=== PATIENT | female | born 1990 | race Caucasian/White ===

== ENCOUNTER 2022-10-19 00:11 | Emergency (ER) | payer SELFPAY ==
--- NOTE | ~2022-10-19 | US_ITS ---
EXAMINATION: US venous doppler [facility] DATE: 10/19/2022 07:55 INDICATION: Left lower limb pain. TECHNIQUE: Grayscale ultrasound images without and with compression and Doppler ultrasound images of the left lower extremity veins were obtained. COMPARISON: None. FINDINGS: The visualized portions of left common femoral vein, profunda (deep) femoral vein, femoral vein, popl iteal vein, peroneal veins, posterior tibial veins, and greater saphenous vein outflow are patent. IMPRESSION: 1. No deep venous thrombosis. Reviewed, dictated and finalized at location A. OL BUS INSPECTOR
[2022-10-19 00:13] VITALS: BP 129/83; PULSE 66; RESP 18; TEMP 37.1; O2SAT 100
--- NOTE | 2022-10-19 00:17 | ECG_ITS ---
Measurements Intervals [place] Rate: 57 P: 35 WV: 169 QRS: 40 QRSD: 96 T: 19 QT: 438 QTc: 430 Interpretive Statements SINUS BRADYCARDIA BORDERLINE ST ABNORMALITY- INF/LAT LEADS BORDERLINE ECG NO PREVIOUS ECG AVAILABLE FOR COMPARISON Electronically Signed On 10-19-2022 6:53:11 TOOL KEEPER by Kush Treviño D.O.
[2022-10-19 03:38] VITALS: BP 106/63; PULSE 55; RESP 16; O2SAT 100
[2022-10-19 07:21] VITALS: BP 103/75; PULSE 55; RESP 13; O2SAT 100
--- NOTE | 2022-10-19 08:27 | ED.GENADULT ---
HPI - General Adult General Chief complaint: Unspecified Stated complaint: CP, back pain, bilateral leg pain Time Seen by Provider: 10/19/22 07:07 History of Present Illness HPI narrative: Pt presents with a area that intermittently pops up behind her left knee when she stands up. Pt says it is not constant and is mildly tender when she pushes on it. Pt says she had a bunch of procedures for vericose veins in [place]. Pt also has plantar's wart on heal. Pt want sot make sure it is not a clot. Related Data Allergies Allergy/AdvReac Type Severity Reaction Status Date / Time No Known Allergies Allergy Verified 06/21/22 10:17 Review of Systems Review of Systems: All systems reviewed & are unremarkable except as noted in HPI and below PMFSH Past Medical History Medical History Encounter for insertion of mirena IUD Smoker Surgical History Surgical History History of surgery on lower extremity vein surgery Social History Social History (Updated 06/21/22 @ 10:20 by Yuko Doherty MA) Smoking packs per day: 1 Smoking cigarettes per day: 20.0 Years smoked: 14 Smoking pack-years: 14.00 Smoking status: Heavy tobacco smoker Tobacco type: cigarettes Second hand tobacco smoke exposure: Yes Alcohol intake: never Substance use: never Substance use type: does not use Living arrangements: with family Occupation/Education: occupation Gender identity (if verbalized by the patient): Female Exam Const: General: cooperative, no acute distress and alert Limitations: no limitations HENMT: Head: normal to inspection Resp: Effort & Inspection: normal respiratory effort Auscultation: clear to auscultation bilaterally Cardio: Rate: regular rate Rhythm: regular rhythm Skin: General skin exam: normal color and no rashes or lesions noted Other: plantar's wart left heel. Neuro: General: patient oriented x3 and no meningeal signs Extrem: General: normal to inspection, full ROM and no joint enlargement Other: no significant abnormality noted on exam Psych: Appearance: grossly normal Mental Status: mental status grossly normal Speech and movement: Normal speech and movement present Affect: normal affect Attitude: cooperative Thought process: Normal thought process present Course Vital Signs Vital signs: Vital Signs Temperature 98.8 F 10/19/22 00:13 Pulse Rate 66 10/19/22 00:13 Respiratory Rate 18 03/07/23 00:13 Blood Pressure 129/83 10/19/22 00:13 Pulse Oximetry 100 10/19/22 00:13 Oxygen Delivery Room Air 10/19/22 00:13 Temperature 98.8 F 10/19/22 00:13 Pulse Rate 54 L 10/19/22 08:44 Respiratory Rate 12 10/19/22 08:44 Blood Pressure 128/54 L 10/19/22 08:44 Pulse Oximetry 98 10/19/22 08:44 Oxygen Delivery Room Air 10/19/22 04:10 Medical Decision Making MDM Narrative Medical decision making narrative: pt has no visible signs of cyst or clot and no significant edema but is concerned for DVT so will order venous doppler. doppler negative. Pt also has plantar wart which we will treat. given pt a pcp for follow up since she is without one. Vital Signs Vital Signs: Vital Signs Temperature 98.8 F 10/19/22 00:13 Pulse Rate 66 10/19/22 00:13 Respiratory Rate 18 10/19/22 00:13 Blood Pressure 129/83 10/19/22 00:13 Pulse Oximetry 100 10/19/22 00:13 Oxygen Delivery Room Air 10/19/22 00:13 Temperature 98.8 F 10/19/22 00:13 Pulse Rate 54 L 10/19/22 08:44 Respiratory Rate 12 10/19/22 08:44 Blood Pressure 128/54 L 10/19/22 08:44 Pulse Oximetry 98 10/19/22 08:44 Oxygen Delivery Room Air 10/19/22 04:10 Discharge Plan Discharge Clinical Impression: Varicose vein of leg, Plantar wart Patient Disposition: Home, Self-Care Condition: Stable Instructions: Antibiotic Form, Plantar Wart (ED) Prescriptions: New salicylic acid 27.5 % film fo
[2022-10-19 08:44] VITALS: BP 128/54; PULSE 54; RESP 12; O2SAT 98
== END 2022-10-19 08:52 | disposition home or self-care (01) ==
PROVIDERS: Emergency Provider Emergency Medicine
DX: I83.92 Asymptomatic varicose veins of left lower extremity (principal); B07.0 Plantar wart; F17.200 Nicotine dependence, unspecified, uncomplicated; F17.210 Nicotine dependence, cigarettes, uncomplicated
CPT/HCPCS: 93005; 93971; 99284

== ENCOUNTER 2024-11-14 15:45 | Emergency (ER) | payer BC, SELFPAY ==
[2024-11-14 15:58] VITALS: BP 111/69; PULSE 87; RESP 18; TEMP 38.5; O2SAT 100
[2024-11-14 16:14] LABS: EDSTREPNEGPOS1 Positive (Negative)
[2024-11-14 16:16] VITALS: TEMP 38.5
[2024-11-14] MEDS: IBUPROFEN 600 MG TABLET PO (16:16)
--- NOTE | 2024-11-14 16:19 | ED.URI ---
HPI - URI/Sore Throat General Chief Complaint: Upper Respiratory Infection Stated Complaint: Sore Throat Time Seen by Provider: 11/14/24 16:09 Source: patient and RN notes reviewed Mode of arrival: ambulatory Limitations: no limitations History of Present Illness HPI Narrative: Patient presents today with a 3 day history of sore throat, bilateral ear pain, subjective fever, body aches, headache. She has been taking Tylenol and ibuprofen with some relief. She currently rates her pain 10/10. Related Data Allergies Allergy/AdvReac Type Severity Reaction Status Date / Time No Known Allergies Allergy Verified 11/14/24 16:00 Review of Systems Review of Systems: CONSTITUTIONAL: + body aches, subjective fever EYES: Denies visual changes, redness, or discharge. ENT: De+ sore throat, bilateral ear pain CARDIOVASCULAR: Denies chest pain, palpitations, or edema. RESPIRATORY: Denies cough or dyspnea. GASTROINTESTINAL: Denies abdominal pain, nausea, vomiting, or diarrhea. GENITOURINARY: Denies dysuria or hematuria. SKIN: Denies rash, itching, or wounds. MUSCULOSKELETAL: Denies back pain, joint pain, or myalgia. NEUROLOGIC: Denies numbness, tingling, or weakness.+ headache PSYCH: Denies depression or anxiety. [facility] Past Medical History Medical History Smoker Surgical History Surgical History (Reviewed 11/14/24 @ 16:22 by Debora Colmenares, [facility], ) H/O gynecological procedure paragard insert 2020 History of surgery on lower extremity vein surgery Social History Social History (Reviewed 11/14/24 @ 16:22 by Debora Colmenares, [facility], ) Smoking packs per day: 1 Smoking cigarettes per day: 20.0 Years smoked: 14 Smoking pack-years: 14.00 Smoking status: Heavy tobacco smoker Tobacco type: cigarettes Second hand tobacco smoke exposure: Yes Alcohol intake: never Substance use: never Substance use type: does not use Do You Feel Safe in your Home?: Yes Lack of Transportation: No Lack of Food: Never True Current Housing: I Have Housing Concerned About Future Housing: No Difficulty Paying Gas/Electric Bills: No Difficulty Paying for Meds: No Currently Unemployed: No Education: Decline to Answer Difficulty w/ Childcare or Family Care: No Living arrangements: with family Occupation/Education: occupation Gender identity (if verbalized by the patient): Female Sexual Orientation (if Verbalized by the Patient): Straight or Heterosexual Comments At time of signature, I have reviewed and agree with nursing past medical, surgical, social and family history unless otherwise noted. Please see nursing chart for further information. There is no relevant family history pertinent to the presenting complaint Exam Narrative: GENERAL: Well-appearing, well-nourished, and in no acute distress. HEAD: Normocephalic, atraumatic. EYES: EOMI. No redness or drainage. Conjunctivae normal. ENT: Mucous membranes pink and moist. Nares clear. No rhinorrhea. TMs normal bilaterally. Throat mildly erythematous and edematous. Exudate on both tonsils which are 2+. Uvula midline. NECK: Normal AROM. Supple. Bilateral anterior cervical chain lymphadenopathy. CHEST: No respiratory distress. Clear to auscultation. HEART: Regular rate and rhythm. No murmur appreciated. EXTREMITIES: Normal range of motion. No edema. SKIN: Warm, dry, no rash. Capillary refill normal. Normal skin turgor. NEURO: No focal deficits. Alert and oriented x3. Gait steady. PSYCH: Normal affect. No signs of depression or anxiety. Course Course Level of Care: Express Care Visit Vital Signs Vital signs: Vital Signs Temperature 101.3 F H 11/14/24 15:58 Pulse Rate 87 11/14/24 15:58 Respiratory Rate 18 11/14/24 15:58 Blood Pressure 111/69 11/14/24 15:58 Pulse Oximetry 100 11/14/24 15:58 Oxygen Delivery Room Air 11/14/24 15:58 Temperature 101.3 F H 11/14/24 16:16 Pulse Rate 87 11/14/24 15:58 Respiratory Rate 18 11/14/24 15:58 Blood Pressure 111/69 11/14/24 15:58 Pulse Oximetry 100 11/14/24 15:58 Oxygen Delivery Room Air 11/14/24 15:58 Reviewed MDM - URI/Sore Throat MDM Narrative Medical decision making narrative: Patient has been diagnosed with strep throat. Prescription for amoxicillin sent to pharmacy. Influenza and COVID negative. Anticipatory guidance given. Differential Diagnosis Differential diagnosis: Likely upper respiratory infection, otitis media, viral infection, influenza, pharyngitis and other (Strep throat, COVID) Lab Data Attestation: I reviewed the patient's lab results. Lab results narrative: COVID and influenza negative Labs: Lab Results 11/14/24 11/14/24 Range/Units 16:13 16:17 POC Influenza A Ag Negative (Negative) POC Influenza B Ag Negative (Negative) POC SARS CoV-2 Ag Negative (Negative) POC Grp A Strep Screen Positive (Negative) Critical Care Time Critical Care Time Critical Care Time: No Discharge Plan Discharge Clinical Impression: Strep throat Patient Disposition: Home, Self-Care Condition: Stable Instructions: Strep Throat (DC) Additional Instructions: You have tested positive for strep throat. Please take the amoxicillin as prescribed until gone. You will be contagious for 24 hours after starting the medication. Take Tylenol or Ibuprofen for pain or fever, if able. Rest and stay hydrated. Follow up with your PCP in 3 days if symptoms are not improving. Go to the ER immediately if you develops worsening symptoms such as shortness of breath, difficulty swallowing. Patient Language: Other Prescriptions: New amoxicillin 875 mg tablet 875 mg PO Q12H 10 Days Qty: 20 0RF No Action ParaGard T 380A 380 square mm intrauterine device 1 device intrauterine ONCE Qty: 1 0RF Rx Instructions: as a single dose Follow-up/Referrals: PHYSICIAN,AREA FIELD MANAGER [Primary Care Provider] - Time of Disposition: 16:24
[2024-11-14 16:20] LABS: EDCOVIDSCREEN Negative (Negative); EDINFLUASCREEN Negative (Negative); EDINFLUBSCREEN Negative (Negative)
== END 2024-11-14 16:31 | disposition home or self-care (01) ==
PROVIDERS: Emergency Provider Nurse Practitioner
DX: J02.0 Streptococcal pharyngitis (principal); Z20.822 Contact with and (suspected) exposure to COVID-19; F17.210 Nicotine dependence, cigarettes, uncomplicated
CPT/HCPCS: 87426; 87804; 87880; 99213; A9270; G0463